=== PATIENT | female | born 1945 | race Caucasian/White ===

== ENCOUNTER 2017-06-12 15:26 | Observation (INO) | payer OTHER ==
[~2017-06-12] VITALS: Ht 154.9 cm; Wt 48.0 kg
--- NOTE | ~2017-06-12 | EKG ---
PATIENT: CONSTANCE DAWSON UNIT #: [id number] Ventricular Rate: 63 BPM Atrial Rate: 63 BPM P-R Interval: 184 ms QRS Duration: 72 ms Q-T Interval: 424 ms QTC Calculation(Bezet): 433 ms P [place]: 57 degrees Calculated R [place]: 41 degrees Calculated T [place]: 40 degrees Diagnosis Line: Normal sinus rhythm Diagnosis Line: Normal ECG Diagnosis Line: When compared with ECG of 18-FEB-2014 17:16, Diagnosis Line: No significant change was found Diagnosis Line: Confirmed by ADALI SMYTH MD ([id number]) on Diagnosis Line: 06/13/2017 11:15:33 PM INTERPRETING MD: HAJA RIDLEY
--- NOTE | ~2017-06-12 | CR72 ---
[facility] A Service of [facility] & [facility] RADIOLOGY TEXT RESULTS PATIENT: CONSTANCE DAWSON LOCATION: [facility] 304-01 : 45 UNIT #: [id number] AGE: [address]: Fercho Brown MD SEX: F ORDER DR: [id number] [facility] [address] [place], [place] [address] [id number] I MR#: [id number] Acc #: [id number] NAME: CONSTANCE DAWSON : 1945 SEX: F STUDY DATE/TIME: 06/12/2017 16:34 UNIT: [address] ROOM: [facility] STUDY DESCRIPTION: CR Chest Single View Portable Attending Physician: Sonia Hernandez M.D. Ordering Physician: Martín Acuna D.O. Primary Care Physician: Seble Del Valle M.D. MEDICAL IMAGING REPORT This report is preliminary unless electronic signature is present EXAM Single view of the chest dated 06/12/2017 COMPARISON Chest 2 views dated 03/08/2015 HISTORY Dizziness, headache for 2 months. Bronchitis. FINDINGS Single view of the chest was obtained. There is no patchy dense consolidation, pleural effusion or pneumothorax. 7 mm stable right lower lobe lung nodule is noted suggestive of old granulomatous disease, stable for 2 years. Remaining lungs are well aerated. Heart and mediastinum are within normal limits. Postoperative changes are noted in the lumbar spine with hardware. Stable. Dictated by... Fredo Trevino M.D. THIS IS AN ELECTRONICALLY VERIFIED REPORT Fredo Trevino M.D. at 06/14/2017 7:31 PM CPR/rnr TD: 06/13/2017 00:10 JOB #: [id number] MEDICAL IMAGING REPORT Page 1 of 1 COPY
--- NOTE | ~2017-06-12 | HP ---
Unit #: [id number] #: [id number] Patient: CONSTANCE DAWSON [id number] [address] [address] [id number] I MR#: [id number] NAME: CONSTANCE DWASON ROOM: 304 Age: 72 Sex: F Admission Date: 06/12/2017 : 1945 Attending Physician: Sonia Hernandez M.D. Primary Care Physician: Seble Del Valle M.D. HISTORY AND PHYSICAL CHIEF COMPLAINT Dizzy, headache, unsteady gait. HISTORY OF PRESENT ILLNESS The patient is a 72-year-old female with past medical history of anemia, paroxysmal atrial fibrillation, hypertension, peripheral vascular disease and depression who presented to the emergency department for evaluation of the above. The patient states that she has had at least a 1- to 2-month history of intermittent lightheadedness. She states that she has felt intermittently generally weak and like she might pass out. She denies any syncopal episode. No falls. She has had intermittent palpitations. She also complained of exertional chest pain. She describes it as feeling her "heart flutter." The lightheadedness is exacerbated by position changes. She states that her appetite has been good. She denies any vomiting or diarrhea. She states that her weight fluctuates. In the emergency department initial pulse and blood pressure were 63 and 133/[address] of the head showed nothing acute. Chest x-ray was negative. Initial cardiac enzymes are negative. EKG shows normal sinus rhythm with a rate of 63 beats per minute. She is being admitted to [facility] for evaluation and further treatment. PAST MEDICAL HISTORY 1. Admission to [facility] June 02 through the 2012 for chest pain. She underwent Lexiscan Cardiolite that was normal with ejection fraction of 76%. 2. Paroxysmal atrial fibrillation. The patient is not routinely followed by a forensic anthropologist. She states that she was previously on Coumadin but has not been for more than 5 years. 3. Hypertension. 4. Anemia. 5. Peripheral vascular disease. The patient has moderate right internal carotid artery stenosis. 6. Depression. PAST SURGICAL HISTORY 1. Appendectomy. 2. Surgery for ovarian cyst. 3. Back surgery. 4. Cardiac catheterization more than 10 years ago. 5. EGD and colonoscopy about 2 years ago. The patient does not recall where it was done. Unit #: [id number] #: [id number] Patient: CONSTANCE DAWSON SOCIAL HISTORY The patient lives with her sister. She typically walks without assistance. There is no tobacco or alcohol use. FAMILY HISTORY Notable for her dad having diabetes, as well as coronary artery disease. ALLERGIES IV dye, penicillin. HOME MEDICATIONS Celexa and oxycodone. Home medications will need to be reviewed and verified. REVIEW OF SYSTEMS A complete review of systems is negative except as indicated in the HPI. PHYSICAL EXAMINATION VITAL SIGNS: Temperature is 98.7, pulse 63, respirations 16, blood pressure 133/77, oxygen saturation 98% on room air. GENERAL: The patient is a female who is awake and alert, in no acute distress. HEENT: The head is atraumatic. Mucous membranes are moist. NECK: Supple. Trachea is midline. CARDIOVASCULAR: Regular rate and rhythm. RESPIRATORY: Lungs are clear to auscultation bilaterally with no increased work of breathing. ABDOMEN: Soft, nontender with bowel sounds present in all 4 quadrants. EXTREMITIES: Extremities are nontender with no pedal edema. NEUROLOGIC: The patient is awake and alert. She follows commands. PSYCHIATRIC: Mood and affect are normal. The patient is cooperative. SKIN: Skin of examined areas is warm and dry. DIAGNOSTIC TESTS CARDIOVASCULAR: EKG shows normal sinus rhythm with a rate of 63 beats per minute. IMAGING: Chest x-ray shows a stable lung nodule. CT of the head shows nothing acute. LABORATORY: Troponin is less than 0.05. Complete blood count notable for hemoglobin and hematocrit of 9.9 and 30.5 respectively. Comprehensive metabolic panel notable for sodium of 130, chloride 99, glucose 124. INR is 0.9. Urinalysis notable for 3+ leukocyte esterase, positive nitrites, 1+ blood with 25-50 white blood cells, 4+ bacteria. ASSESSMENT 1. The patient is a 72-year-old female with lightheadedness. 2. Exertional chest pain. The patient had cardiac catheterization more than 10 years ago (no records). She did have a stress test in May of 2013 that was negative. She is not routinely followed by a forensic anthropologist. 3. Normocytic anemia. The patient's hemoglobin was 11.6 on November 24, 2015. It is 9.9 today. She denies any blood in the stool. No black, tarry stool. 4. Urinary tract infection. The patient had a urine culture July 09, Unit #: [id number] #: [id number] Patient: CONSTANCE DAWSON 2012 that grew greater than 100,000 E-coli that was crandall sensitive. 5. Paroxysmal atrial fibrillation, not on chronic anticoagulation, not followed by a forensic anthropologist, currently in normal sinus rhythm. 6. Hypertension. 7. Peripheral vascular disease. 8. Depression. 9. Stable lung nodule. PLAN 1. Admit to intermediate level for observation. 2. Healthy heart diet. 3. NPO after midnight for possible stress test. 4. Normal saline at 75 mL an hour. 5. Orthostatics every shift. 6. Bedrest. 7. Fall precautions. 8. Fasting lipid panel. 9. Serial cardiac enzymes. 10. Consult Dr. Grewal regarding chest pain. 11. Iron studies, B12 and folate. 12. Hemoccult stool. 13. Urine culture and sensitivity on urine in the lab. 14. Levaquin IV pending results of the urine culture. 15. Repeat labs in the morning. 16. Sequential compression devices for deep venous thrombosis prophylaxis. 17. Additional workup and consultants based on above. Dictated by Judah Lord/geoff TD: 06/13/2017 08:48 JOB #: [id number] HISTORY AND PHYSICAL Page 1 of 1 X Sonia Hernandez MD X HISTORY AND PHYSICAL
--- NOTE | ~2017-06-12 | DS ---
Unit #: [id number] #: [id number] Patient: CONSTANCE DAWSON [id number] [address] [address] [id number] I MR#: [id number] NAME: CONSTANCE DAWSON ROOM: 304 Age: 72 Sex: F Admission Date: 06/12/2017 : 1945 Discharge Date: 06/14/2017 Attending Physician: Fercho Brown M.D. Primary Care Physician: Seble Del Valle M.D. DISCHARGE SUMMARY DISCHARGE DIAGNOSES 1. Dizziness. 2. Urinary tract infection. 3. Atrial fibrillation. 4. Chest pain. HOSPITAL COURSE The patient is a 72-year-old female admitted 06/12/2017 secondary to dizziness and chest pain. Apparently she had complained of some palpitations as well. Patient was seen in consultation by cardiology, given the concern for palpitations and chest pain. Ultimately it was felt that the patient was not in need of an aggressive/invasive workup as it is not felt that the patient's chest pain was cardiac in nature. She did, however, undergo 2D echo, which revealed normal ejection fraction. Patient's symptoms resolved over the course of her hospitalization. UA was noted to be consistent with urinary tract infection and ultimately the patient's urine grew Gram-negative rods. As a result, the patient is being discharged home on Keflex at this time. DISCHARGE MEDICATIONS 1. Aspirin 81 mg daily. 2. Keflex 500 mg p.o. t.i.d. 3. Vitamin D2 50,000 units weekly. 4. Gabapentin 400 mg p.o. t.i.d. 5. Roxicodone 7.5 mg p.o. p.r.n. pain 2 to 3 hours. 6. Celexa 20 mg p.o. daily. FOLLOWUP The patient should followup with cardiology in two to four weeks. Additionally she should keep her regularly scheduled appointment with her primary care provider. Dictated by... Fercho Brown M.D. GAYATRI/chong TD: 06/15/2017 11:39 JOB #: [id number] Unit #: [id number] #: [id number] Patient: CONSTANCE DAWSON DISCHARGE SUMMARY Page 1 of 1 X Fercho Brown MD DISCHARGE SUMMARY
--- NOTE | ~2017-06-12 | CO ---
Unit #: [id number] #: [id number] Patient: CONSTANCE ROBBINS [id number] [facility]. [place], [place] [address] [id number] I MR#: [id number] NAME: CONSTANCE ROBBINS ROOM: 304 Age: 72 Sex: F Admission Date: 06/12/2017 : 1945 Attending Physician: Sonia Hernandez M.D. Primary Care Physician: Seble Del Valle M.D. CONSULTATION REPORT CHIEF COMPLAINT Dizziness and weakness with unsteady gait. HISTORY OF PRESENT ILLNESS Ms. Robbins is a 72-year-old white female with a history of hypertension, paroxysmal atrial fibrillation. The patient is a poor historian and states that her irregular heart rhythm just resolved itself and she no longer needed anticoagulation. By her description, she may have seen an EP doctor who kept offering her an intervention, which she refused and then she tired of seeing that physician who only kept her on medications, so she stopped seeing him and stopped medicines. She cannot remember who the doctor was and she thinks that she saw him in the and states that, that office no longer exist. She presents this admission with complaints of dizziness, weakness, and back pain. She denies any chris chest discomfort, no chest pain. She states that she just has palpitations. She lives with her sister and helps care for the children and while she has been doing dishes, she has just felt her heart flutter a little bit and no other complaints. She does have a history of echocardiogram done in 05/2013, which was normal with an EF of 55%. At that time, she also had a Lexiscan stress test which was normal with an EF of 76%. PAST MEDICAL HISTORY 1. Peripheral vascular disease with right internal carotid artery stenosis. 2. Hypertension. 3. Depression. 4. Asthma. 5. Paroxysmal atrial fibrillation without any further anticoagulation. HOME MEDICATIONS Include Celexa and oxycodone and waiting for home medication verification. PAST SURGICAL HISTORY Appendectomy, surgery for ovarian cyst, back surgery, questionable history of a heart catheterization greater than 10 years ago. The patient denies heart catheterization, but it is in a past medical history. EGD and colonoscopy 2 years ago. The patient does not recall where it was done. SOCIAL HISTORY She lives with her sister and cares for her children. No tobacco. No alcohol use. FAMILY HISTORY Unit #: [id number] #: [id number] Patient: CONSTANCE ROBBINS Father with diabetes as well as coronary artery disease, myocardial infarctions. REVIEW OF SYSTEMS Negative except for HPI. No hematuria. No melena. No syncope, but complaints of near syncope. No fall. No lower extremity edema. No chest discomfort. No shortness of air. No dyspnea on exertion. No paroxysmal nocturnal dyspnea. No cough. No fevers. PHYSICAL EXAMINATION GENERAL: Well developed, well nourished, white female, who is a somewhat poor historian and is slightly inappropriate with her history secondary to her inability to recall. VITAL SIGNS: Blood pressure lying 122/55, sitting 110/60, standing 111/68; temperature 97.8; pulse 58; respirations 16; 5 feet 1 inch; weight 48 kg; BMI 20. HEENT: Normocephalic and atraumatic. No xanthelasma. Pupils equal, round, reactive to light. Extraocular movements intact. NECK: Supple. No jugular venous distention. No elevated CVP. LUNGS: Clear to auscultation bilaterally anteriorly and posteriorly all hoyt. HEART: S1 and S2. No S3 or S4. Normal sinus rhythm. No lift. ABDOMEN: Soft, nontender, nondistended. NEUROLOGIC: Awake, alert, oriented x3. Speech is clear and appropriate. Moving all extremities spontaneously with equal strength. No focal deficits. EXTREMITIES: No clubbing, cyanosis, or edema. Pulses 2+ bilaterally. SKIN: Dry and intact. No wounds. DIAGNOSTIC STUDIES RADIOLOGIC STUDIES: Chest x-ray shows no patchy dense consolidation, pleural effusion, or pneumothorax. There is a 7 mm stable right lower lobe lung nodule suggestive of old granulomatous disease, stable for 2 years. IMAGING STUDIES: CT of the head without contrast shows no acute intracranial hemorrhage, space-occupying mass, mass effect, or midline shift. There is less than 1 cm two hypodensities in the right basal ganglia likely related to a prior insult like old lacunar infarcts or perivascular benign prominent Virchow-Bob space. There is no acute intracranial abnormality. A 12-lead EKG shows normal sinus rhythm, ventricular rate 63. No ST depression. No ST elevation. No acute T-wave abnormality. LABORATORY RESULTS: Chemistry; sodium 138, potassium 4.6, chloride 103, CO2 of 27, BUN 8, creatinine 0.6, glucose 84, total protein 5.7, albumin 3.2, AST 20, ALT 12, alkaline phosphatase 59. Troponin less than 0.03, repeat less than 0.03. Iron was 62, total iron binding capacity 263, B12 of 487, folate 14.6. Lipid panel; cholesterol 144, triglycerides 42, LDL 75, HDL 61. Coagulation; PT 10.3, INR 0.9, PTT 25.8. Point of care troponin was less than 0.05, repeat less than 0.05. Hemoglobin 9.6, hematocrit 29.3, white blood cell count 5.0, platelet count 203. UA was positive for leukocyte esterase 3+, nitrite positive, urobilinogen 0.2, blood 1+. Microscopy shows red blood cells 0 to 2, white blood cells 25 to 50, 4+ bacteria. Culture is pending. ASSESSMENT AND PLAN 1. Positive for urinary tract infection. Unit #: [id number] #: [id number] Patient: CONSTANCE ROBBINS 2. Dizziness, near syncope. 3. Back pain. 4. Palpitations with history of paroxysmal atrial fibrillation, currently normal sinus rhythm. We will check a 2D echocardiogram. 5. Anemia. Iron studies obtained, primary following. Levaquin has been started for urinary tract infection. We will check a 2D echocardiogram with Dopplers, EKG and troponin in the a.m. with a TSH. Thank you for allowing us to participate in the care of your patient. There is no myocardial infarction. Normal EKG. We will continue to follow. Dictated by... Renae Carlson A.P.R.N. DORA/kerline TD: 06/14/2017 01:12 JOB #: [id number] CONSULTATION REPORT Page 1 of 1 X X CONSULTATION REPORT
--- NOTE | ~2017-06-12 | CT71 ---
[facility] A Service of [facility] & [facility] RADIOLOGY TEXT RESULTS PATIENT: CONSTANCE DAWSON LOCATION: [facility] 304-01 : 45 UNIT #: [id number] AGE: [address]: Fercho Brown MD SEX: F ORDER DR: [id number] [facility] [address] [place], [place] [address] [id number] I MR#: [id number] #: [id number] NAME: CONSTANCE DAWSON : 1945 SEX: F STUDY DATE/TIME: 06/12/2017 16:46 UNIT: A U ROOM: [facility] STUDY DESCRIPTION: CT Head Wo Contrast Attending Physician: Sonia Hernandez M.D. Ordering Physician: Martín Acuna D.O. Primary Care Physician: Seble Del Valle M.D. MEDICAL IMAGING REPORT This report is preliminary unless electronic signature is present EXAM CT head without contrast dated 06/12/[address] head without contrast dated 07/14/2016. HISTORY Dizziness, headache and unsteady gait for a month. Intermittent. TECHNIQUE This CT exam was performed with one or more of the following radiation dose reduction techniques: automatic control, adjustment of mA and/or kV according to patient size, and iterative reconstruction. FINDINGS CT of the head was obtained without contrast in the axial plane. No acute intracranial hemorrhage, hydrocephalus or midline shift. Two hypodensities measuring less than a cm are noted in the right basal ganglia. Stable since last year. No interval new acute abnormality like hemorrhage. The left lateral ventricle is slightly more prominent when compared to the right lateral ventricle particularly involving the body. It is stable when compared to the prior study and it is probably within normal limits for this patient. No evidence of obstructive lesions are noted in the region of the left foramen of Monro. Bones, paranasal sinuses are within normal limits. There is large right and small left ella bullosa of the middle turbinates. Minimal right mastoid tip mucosal thickening is seen. IMPRESSION 1. No acute intracranial hemorrhage, space occupying mass, mass effect, midline shift or hydrocephalus. 2. Less than 1 cm 2 hypodensities are noted in the right basal ganglia, likely related to prior insult like old lacunar infarcts and/or STS. [facility] A Service of [facility] & [facility] RADIOLOGY TEXT RESULTS PATIENT: CONSTANCE DAWSON LOCATION: [facility] 304-01 : [birth year] UNIT #: [id number] AGE: [address]: Fercho Brown MD SEX: F ORDER DR: perivascular benign prominent Virchow-Bob space. 3. No significant acute intracranial abnormality. Dictated by... Fredo Trevino M.D. THIS IS AN ELECTRONICALLY VERIFIED REPORT Fredo Trevino M.D. at 06/14/2017 7:31 PM CPR/rnr TD: 06/13/2017 00:26 JOB #: [id number] MEDICAL IMAGING REPORT Page 1 of 1 COPY
--- NOTE | ~2017-06-12 | EKG ---
PATIENT: CONSTANCE DAWSON UNIT #: [id number] Ventricular Rate: 67 BPM Atrial Rate: 67 BPM P-R Interval: 180 ms QRS Duration: 76 ms Q-T Interval: 418 ms QTC Calculation(Bezet): 441 ms P [place]: 58 degrees Calculated R [place]: 27 degrees Calculated T [place]: 50 degrees Diagnosis Line: Normal sinus rhythm Diagnosis Line: Normal ECG Diagnosis Line: When compared with ECG of 12-JUN-2017 15:53, Diagnosis Line: No significant change was found Diagnosis Line: Confirmed by DONNELL ALFARO MD ([id number]) on Diagnosis Line: 06/14/2017 8:27:14 PM INTERPRETING MD: CATHY
[~2017-06-12 15:26] MED LIST: ACETAMINOPHEN PO; ALBUTEROL17 GM INH; ASPIRIN81 MG PO; ASPIRINEC PO; BENZONATATE PO; CELEXA PO; DYAZIDE 37.5/251 CAP PO; EC-NAPROSYN500 MG PO; ERY-TAB500 MG PO; ERYTHROMYCIN O3.5 GM OD; FAMOTIDINE PO; IBUPROFEN800 MG PO; MACROBID100 MG DOB; NORVASC PO; PERCOCET 10/3251 TAB PO; PERCOCET5/325 PO; PHENERGAN25 M1 DOB; PYRIDIUM100 MG PO
[2017-06-12 16:28] LABS: POC - CKMB <1.0 ng/mL (0.0-7.9); POC - TROPONIN <0.05 ng/mL (<=0.05)
[2017-06-12 16:30] LABS: BASOPHIL# 0.1 X10e3 (0-0.3); BASOPHIL% 0.9 % (0-2.5); EOSINOPHIL# 0.1 X10e3 (0-0.7); EOSINOPHIL% 1.8 % (0.0-7.0); HEMATOCRIT 30.5 % (35.0-45.0); HEMOGLOBIN 9.9 gm/dL (12.0-16.0); LYMPHOCYTE# 1.6 X10e3 (1.0-3.5); LYMPHOCYTE% 26.3 % (17.0-45.0); MEAN CELL VOLUME 88.6 FL (83-96); MEAN CORPUSCULAR HEMOGLOBIN 28.8 PG (28-34); MEAN CORPUSCULAR HGB CONC 32.6 g/dL (30-36); MONOCYTE# 0.6 X10e3 (0-1.0); MONOCYTE% 9.8 % (3.0-12.0); NEUTROPHIL# 3.8 X10e3 (1.5-7.1); NEUTROPHIL% 61.2 % (40-75); PLATELET COUNT 211 X10e3 (140-420); RED BLOOD COUNT 3.44 X10e (3.90-5.30); RED CELL DISTRIBUTION WIDTH 13.2 % (11.0-15.5); WHITE BLOOD COUNT 6.1 X10e3 (4.0-10.5)
[2017-06-12 16:31] LABS: DIFF IND NO
[2017-06-12 16:54] LABS: ALBUMIN SERUM 3.8 g/dL (3.5-5.0); BILIRUBIN, DIRECT 0.1 mg/dL (0.0-0.2); BILIRUBIN,INDIRECT 0.6 mg/dL (0.0-0.9); BILIRUBIN,TOTAL 0.7 mg/dL (0.2-2.0); CALCIUM SERUM 8.6 mg/dL (8.4-10.2); CREATININE SERUM 0.6 mg/dL (0.6-1.4); GLOM FILT RATE Estimated 91.1 mL/min (>60); INR 0.9; PARTIAL THROMBOPLASTIN TIME 25.8 SECONDS (23.5-31.3); POTASSIUM 3.9 mmol/L (3.5-5.1); PROTEIN TOTAL SERUM 6.6 g/dL (6.0-8.3); PROTHROMBIN TIME (PATIENT) 10.3 SECONDS (10.0-11.7)
[2017-06-12 18:57] LABS: POC - CKMB <1.0 ng/mL (0.0-7.9); POC - TROPONIN <0.05 ng/mL (<=0.05)
[2017-06-12 19:13] LABS: URINE SOURCE CLEAN CATCH
[2017-06-12 19:17] LABS: URINE APPEARANCE CLEAR; URINE BILIRUBIN NEG (NEG); URINE BLOOD 1+ (NEG); URINE COLOR YELLOW; URINE GLUCOSE NEG (NEG); URINE KETONE NEG (NEG); URINE LEUKOCYTE ESTERASE 3+ (NEG); URINE NITRATE POS (NEG); URINE PROTEIN NEG (NEG); URINE SPECIFIC GRAVITY 1.008 (1.003-1.035); URINE UROBILINOGEN 0.2 MG/DL (NEG)
[2017-06-12 19:20] LABS: CULTURE INDICATED? YES; URBCS1 AUWI 0-2 /[HPF] (0-2); URINE BACTERIA AUWI 4+ (NEGATIVE); URINE SQUAMOUS EPITHELIAL CELL NONE SEEN /[HPF]; UWBCS1 AUWI 25-50 (0-5)
[2017-06-13 00:14] LABS: IRON SERUM 62 ug/dL (28-170); TOTAL IRON BINDING CAPACITY 263 ug/dL (269-535); TRANSFERRIN 188 mg/dL (192-382); TRANSFERRIN SATURATION 24 % (20-50)
[2017-06-13 00:37] LABS: FOLATE (FOLIC ACID) 14.6 ng/mL (>5.8)
[2017-06-13 00:42] LABS: %MB 1.9 % (0.0-4.0); MB 1.8 ng/ml
[2017-06-13 06:27] LABS: BASOPHIL# 0.1 X10e3 (0-0.3); BASOPHIL% 1.1 % (0-2.5); EOSINOPHIL# 0.1 X10e3 (0-0.7); EOSINOPHIL% 2.6 % (0.0-7.0); HEMATOCRIT 29.3 % (35.0-45.0); HEMOGLOBIN 9.6 gm/dL (12.0-16.0); LYMPHOCYTE# 1.8 X10e3 (1.0-3.5); LYMPHOCYTE% 35.5 % (17.0-45.0); MEAN CORPUSCULAR HEMOGLOBIN 28.5 PG (28-34); MEAN CORPUSCULAR HGB CONC 32.8 g/dL (30-36); MEAN PLATELET VOLUME 9.8 FL (6.5-11.5); MONOCYTE# 0.7 X10e3 (0-1.0); NEUTROPHIL# 2.4 X10e3 (1.5-7.1); NEUTROPHIL% 47.8 % (40-75); PLATELET COUNT 203 X10e3 (140-420); RED BLOOD COUNT 3.37 X10e (3.90-5.30); RED CELL DISTRIBUTION WIDTH 12.9 % (11.0-15.5)
[2017-06-13 06:34] LABS: DIFF IND NO
[2017-06-13 07:20] LABS: ALBUMIN SERUM 3.2 g/dL (3.5-5.0); BILIRUBIN,TOTAL 0.5 mg/dL (0.2-2.0); BUN/CREATININE RATIO 13.33; CALCIUM SERUM 8.7 mg/dL (8.4-10.2); CREATININE SERUM 0.6 mg/dL (0.6-1.4); GLOM FILT RATE Estimated 91.1 mL/min (>60); POTASSIUM 4.6 mmol/L (3.5-5.1); PROTEIN TOTAL SERUM 5.7 g/dL (6.0-8.3)
[2017-06-13 07:42] LABS: MB 1.7 ng/ml
[2017-06-13] MEDS ORDERED: CELEXA20 MG PO (22:06)
[2017-06-13] MEDS ORDERED: ROXICODONE15 MG PO (22:06)
[2017-06-14 06:03] LABS: HEMATOCRIT 29.2 % (35.0-45.0); HEMOGLOBIN 9.6 gm/dL (12.0-16.0); MEAN CELL VOLUME 87.7 FL (83-96); MEAN PLATELET VOLUME 9.9 FL (6.5-11.5); RED BLOOD COUNT 3.33 X10e (3.90-5.30); RED CELL DISTRIBUTION WIDTH 12.9 % (11.0-15.5); WHITE BLOOD COUNT 4.8 X10e3 (4.0-10.5)
[2017-06-14 06:37] LABS: BUN/CREATININE RATIO 13.33; CALCIUM SERUM 8.6 mg/dL (8.4-10.2); CREATININE SERUM 0.6 mg/dL (0.6-1.4); GLOM FILT RATE Estimated 91.1 mL/min (>60); POTASSIUM 3.8 mmol/L (3.5-5.1)
[2017-06-14] MEDS ORDERED: VITAMIN D250000 UNIT PO (10:06)
[2017-06-14] MEDS ORDERED: GABAPENTIN400 M2 PO (10:06)
[2017-06-14] MEDS ORDERED: KEFLEX500 MG PO (16:21)
[2017-06-14] MEDS ORDERED: ASPIRIN81 M2 PO (16:21)
== END 2017-06-14 18:17 | disposition home or self-care (01) ==
LOC: CED 15:26 → CEDOF 19:30 → CED 19:40 → CEDOF 22:15 → C3A PCU 22:15
PROVIDERS: Emergency Medicine; Family Medicine; Internal Medicine
DX: R07.89 Other chest pain (principal); I08.1 Rheumatic disorders of both mitral and tricuspid valves; N39.0 Urinary tract infection, site not specified; I48.91 Unspecified atrial fibrillation; R51 Headache; I10 Essential (primary) hypertension; Z88.0 Allergy status to penicillin; Z91.041 Radiographic dye allergy status; I73.9 Peripheral vascular disease, unspecified
CPT/HCPCS: 36415; 70450; 71010; 80048; 80053; 80061; 80076; 81003; 82274; 82550; 82553; 82607; 82728; 82746; 83540; 83550; 84443; 84484; 85025; 85027; 85610; 85730; 86850; 86900; 86901; 87086; 87186; 93005; 93306; 96374; 96376; 99285; G0378; J0696